=== PATIENT | female | born 1950 | race Caucasian/White ===

== ENCOUNTER → 2018-05-17 | Outpatient (CLI) | payer MEDICARE, OTHER ==
[2018-05-17 14:34] VITALS: BP 129/63; PULSE 77; TEMP 97.9; BMI 30.7
--- NOTE | 2018-05-17 15:49 | P.HPOB ---
History of Present Illness H&P Date: 05/17/18 Chief Complaint: The patient is here for routine gynecologic exam. This is a 68-year-old with an LMP of approximately 1989. The patient is here to establish with this office. She states it has been more than 10 years since her last pelvic exam. She is without gynecologic complaints and denies any postmenopausal bleeding. Review of Systems Her weight has been stable over the last year. She denies respiratory, cardiac and G.I. problems. She denies maltreatment or problems with falling. : she denies any significant problems with urinary leakage. Past Medical History Past Medical History: Diabetes Mellitus (Type I diabetes), Hypertension, Myocardial Infarction (MO) (1997) Additional Past Medical History / Comment(s): PAST FELLER HAND HISTORY: She has no history of STDs. Last Myocardial Infarction Date:: 1997 History of Any Multi-Drug Resistant Organisms: None Reported Past Surgical History: Cholecystectomy, Coronary Bypass/CABG (1997 triple bypass ), Orthopedic Surgery (Knee surgeries), Tonsillectomy, Tubal Ligation Additional Past Surgical History / Comment(s): Coronary artery stents. Colonoscopy 2017(3rd). Past Psychological History: No Psychological Hx Reported Smoking Status: Never smoker Past Alcohol Use History: Rare Past Drug Use History: None Reported Additional History: She has been a since approximately 2007. She is not seen anybody at this time. 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 - Past Family History Father Additional Family Medical History / Comment(s): Multiple sclerosis. Mother Family Medical History: Diabetes Mellitus Additional Family Medical History / Comment(s): Maternal grandmother had uterine cancer. Medications and Allergies Home Medications and Allergies Comment(s): The patient states she is on multiple medications but does not know what medications she is on and does not have a list of her medications at this time. She states she will send the list of medications to us. Allergies Allergy/AdvReac Type Severity Reaction Status Date / Time codeine AdvReac Severe Nausea Unverified 05/17/18 14:31 Exam Vital Signs Temp Pulse BP 05/17/18 14:31 97.9 F 77 129/63 Intake and Output 05/17/18 05/17/18 05/17/18 06:59 14:59 22:59 Other: Weight 76.204 kg Height 5'2", weight 168 pounds, BMI 30.7. This is a well-developed well-nourished white female who is alert and oriented times 3 in no acute distress. HEENT: Within normal limits. NECK: Supple without mass or thyromegaly. CHEST AND LUNGS: Clear to auscultation. HEART: Regular rate and rhythm. BREASTS: Are without mass or discharge. AXILLARY EXAM: Negative for adenopathy. BACK: Negative for CVA tenderness. ABDOMEN: Soft, nontender, without palpable masses. PELVIC EXAM: Normal external genitalia with mild to moderate atrophy. Cervix and vagina appear normal with mild to moderate atrophy. There is no unusual discharge. There is no evidence of prolapse. The uterus is midposition, nongravid size and nontender. There are no palpable adnexal masses or tenderness. RECTAL EXAM: rectovaginal exam is negative for mass or tenderness and is negative for occult blood. EXTREMITIES: Nontender. IMPRESSION: 1. 68 year old menopausal female with normal gynecologic exam. 2. Multiple medical problems. PLAN: 1. Pap smear was performed. 2. Self breast awareness was discussed with the patient. 3. I have recommended screening mammogram and the order slip was given to the patient for this. 4. Osteoporosis prevention was discussed. Bone density screening was also recommended and the order slip was given to the patient for this. 5. She is declining any flu vaccinations. 6. She will return in one year.
== END | disposition home or self-care (01) ==
LOC: WWCWWP 14:04
PROVIDERS: ATTEND Obstetrics & Gynecology
DX: Z53.9 Procedure and treatment not carried out, unspecified reason (principal)

== ENCOUNTER → 2018-06-24 | Outpatient (CLI) | payer MEDICARE, OTHER ==
--- NOTE | 2018-06-24 11:37 | BD ---
EXAMINATION TYPE: Axial Bone Density DATE OF EXAM: 06/24/2018 COMPARISON: NONE CLINICAL HISTORY: Postmenopausal female. Osteoporosis screening. Height: 62.5 IN Weight: 164 LBS FRAX RISK QUESTIONS: Secondary Osteoporosis: 1. Type 1 Diabetes: YES RISK FACTORS HISTORY OF: Active: YES Diet low in dairy products/other sources of calcium: YES Postmenopausal woman: AGE 45 Lost more than 2 inches in height since high school: YES 07/20" MEDICATIONS: Additional Medications: VIT D, LOSARTAN, ISOSORB MONO ER, CARVEDILOL, ATORVASTATIN, NOVOLIN EXAM MEASUREMENTS: Bone mineral densitometry was performed using the [employer] System. Bone mineral density as measured about the Lumbar spine is: ----- L1-L4(G/cm2): 1.503 T Score Values are as follows: ----- L2: 2.3 ----- L3: 2.4 ----- L4: 3.4 ----- L1-L4: 2.7 Bone mineral density BASELINE Bone mineral density about the R hip (g/cm2): 0.986 Bone mineral density about the L hip (g/cm2): 0.866 T Score values are as follows: -----R Neck: -0.4 -----L Neck: -1.2 -----R Total: -0.2 -----L Total: -0.4 Bone mineral density BASELINE IMPRESSION: Osteopenia (T Score between -2.5 and -1). There is slightly increased risk of fracture and the patient may be considered for treatment. Re-Screen 2-5 years. NOTE: T-SCORE=SD OF THE YOUNG ADULT MEAN.
--- NOTE | 2018-06-28 07:37 | MM ---
Reason for exam: screening (asymptomatic). Last mammogram was performed 1 year ago. History: Patient is postmenopausal. Physical Findings: A clinical breast exam by your physician is recommended on an annual basis and results should be correlated with mammographic findings. MG 3D Screening Mammo W/Cad Bilateral CC and MLO view(s) were taken. Prior study comparison: June 18, 2017, mammogram, performed at [facility]. April 29, 2016, mammogram, performed at [facility]. There are scattered fibroglandular densities. No significant changes when compared with prior studies. ASSESSMENT: Benign, BI-RAD 2 RECOMMENDATION: Routine screening mammogram of both breasts in 1 year.
--- NOTE | 2018-06-29 10:07 | P.PN ---
Progress Note - Text Progress Note Date: 06/29/18 OUTPATIENT FOLLOW-UP NOTE TEST(S)/RESULTS: bone density test done on 06/24/2018 shows focal osteopenia in the left femur neck with a T score of -1.2. METHOD OF NOTIFICATION: the patient was notified by phone. PATIENT COMMENTS: she states she had previous normal bone density tests done in [place]. DIAGNOSIS: focal osteopenia DISCUSSION: we have discussed the importance of getting adequate calcium, vitamin D and regular exercise. She was already given a handout on this. PLAN: repeat bone density testing in 3 years. She will return in one year for her annual well woman exam.
== END | disposition home or self-care (01) ==
LOC: RADBDWWP 10:19
PROVIDERS: ATTEND Obstetrics & Gynecology
DX: Z12.31 Encounter for screening mammogram for malignant neoplasm of breast (principal); M85.80 Other specified disorders of bone density and structure, unspecified site; Z78.0 Asymptomatic menopausal state
CPT/HCPCS: 77063; 77067; 77080

== ENCOUNTER → 2019-07-25 | Outpatient (CLI) | payer MEDICARE, OTHER ==
[2019-07-25 13:04] VITALS: BP 148/72; PULSE 61; RESP 16; TEMP 97.7
--- NOTE | 2019-07-25 13:59 | P.HPOB ---
History of Present Illness H&P Date: 07/25/19 Chief Complaint: The patient is here for her routine gynecologic exam and ma mmogram. This is a 69-year-old with an LMP of 1989. The patient states she has had a slight vaginal odor for greater than 1 year. She was treated for BV after her Pap smear showed a shift in the vaginal justine. Pap smear was negative on 05/17/2018. She was treated for BV twice and states she never noticed much improvement with the vaginal odor. She states it is fairly constant and there is a slight thin discharge noted with it. She denies any postmenopausal bleeding. She states she has not been sexually active for many years. She denies any pruritus. Review of Systems She has lost about 8 pounds over the last year. She denies respiratory, cardiac and G.I. problems. She denies maltreatment or problems with falling. : she has occasional slight leakage with laughing or coughing. Past Medical History Past Medical History: Diabetes Mellitus, Hypertension, Myocardial Infarction (MO) Additional Past Medical History / Comment(s): Type 1 diabetes. 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 Last Myocardial Infarction Date:: 1997 History of Any Multi-Drug Resistant Organisms: None Reported Past Surgical History: Cholecystectomy, Coronary Bypass/CABG, Orthopedic Surgery, Tonsillectomy, Tubal Ligation Additional Past Surgical History / Comment(s): Coronary artery stents. Colonoscopy 2017(3rd). Past Psychological History: No Psychological Hx Reported Smoking Status: Never smoker Past Alcohol Use History: Occasional (1 per month) Past Drug Use History: None Reported Additional History: She is a since approximately 2007. She is not seeing anybody at this time and is not sexually active. 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 - Past Family History Father Additional Family Medical History / Comment(s): Multiple sclerosis. Mother Family Medical History: Diabetes Mellitus Additional Family Medical History / Comment(s): Maternal grandmother had uterine cancer. Medications and Allergies Home Medications Medication Instructions Recorded Confirmed Type Atorvastatin [Lipitor] 80 mg PO DAILY 05/24/18 07/25/19 History Carvedilol [Coreg] 3.125 mg PO BID 05/24/18 07/25/19 History Clopidogrel [Plavix] 75 mg PO DAILY 05/24/18 07/25/19 History Insulin NPH Human Isophane 12 - 13 unit INJ HS 05/24/18 07/25/19 History [NovoLIN N] Insulin NPH Human Isophane 22 units INJ DAILY 05/24/18 07/25/19 History [NovoLIN N] Insulin Regular, Human [NovoLIN R] 100 100ml.bag INJ DIRECTED 05/24/18 07/25/19 History Isosorbide Mononitrate [Imdur] 120 mg PO DAILY 05/24/18 07/25/19 History Allergies Allergy/AdvReac Type Severity Reaction Status Date / Time codeine AdvReac Severe Nausea Unverified 07/25/19 13:05 NSAIDS (Non-Steroidal AdvReac Rash/Hives Unverified 07/25/19 13:05 Anti-Inflamma Exam Vital Signs Temp Pulse Resp BP Pulse Ox 07/25/19 12:59 97.7 F 61 16 148/72 95 Intake and Output 07/24/19 07/25/19 07/25/19 22:59 06:59 14:59 Other: Weight 72.575 kg Height 5 feet 2 inches, weight 160 pounds, BMI 29.3. This is a well-developed well-nourished white female who is alert and oriented times 3 in no acute distress. HEENT: Within normal limits. NECK: Supple without mass or thyromegaly. CHEST AND LUNGS: Clear to auscultation. HEART: Regular rate and rhythm. BREASTS: Are without mass or discharge. AXILLARY EXAM: Negative for adenopathy. BACK: Negative for CVA tenderness. ABDOMEN: Soft, nontender, without palpable masses. PELVIC EXAM: Normal external genitalia with mild atrophy. Cervix and vagina appear normal with mild atrophy. There is a minimal amount of clear thin liquid in the vagina with minimal odor. There is no evidence of prolapse. The uterus is midposition, nongravid size and nontender. There are no palpable adnexal masses or tenderness. RECTAL EXAM: Rectovaginal exam is negative for mass or tenderness and is negative for occult blood. EXTREMITIES: Nontender. IMPRESSION: 1. 69-year-old menopausal female with chronic vaginal odor and slight discharge. There are minimal physical findings on examination today. Differential diagnosis will include bacterial vaginosis, physiologic discharge, slight discharge related to genital atrophy, or atypical symptoms for other vaginitis. 2. Multiple medical problems. 3. History of osteopenia PLAN: 1. Pap smear was deferred since she had a negative one on 05/17/2018. 2. Self breast awareness was discussed with the patient. 3. Screening mammogram will be done today. 4. Affirm nucleic acid testing for BV, Trichomonas and Zoila was sent from the slight vaginal discharge. 5. If the affirm testing is unremarkable, consider other options such as trial of estradiol vaginal cream, Rephresh gel, or acidophilus supplements. 6.Osteoporosis prevention was discussed. I have stressed the importance of adequate calcium, vitamin D and regular exercise. Recommended amounts of calcium and vitamin D were also discussed. I have recommended bone density testing in 1 year since her last one was on 06/24/2018 and showed osteopenia. 7. She states she does not get flu shots in the fall. I have asked her to reconsider this to reduce the risk of getting the flu. 8. The patient was advised to return in 1-2 years for her well woman examination.
[2019-07-26 03:59] LABS: Gardnerella Positive (Negative); Source Vagina; Trichomonas Negative (Negative)
--- NOTE | 2019-07-26 09:29 | P.PN ---
Progress Note - Text Progress Note Date: 07/26/19 OUTPATIENT FOLLOW-UP NOTE TEST(S)/RESULTS: Test results from 07/25/2019 showed a vaginal nucleic acid testing positive for Gardnerella and negative for Trichomonas and Zoila. METHOD OF NOTIFICATION: The patient was notified by phone PATIENT COMMENTS: She would like to try the vaginal gel antibiotic. DIAGNOSIS: Bacterial vaginosis DISCUSSION: She had previously used oral metronidazole without much improvement last year. We have discussed how it will also be important to try to increase the good bacterial vaginal justine, if possible. I have recommended that she increase oral yogurt intake or consider getting a probiotic. PLAN: MetroGel vaginal, 1 applicator intravaginally daily at bedtime 5 days. The electronic prescription will be sent to [facility] pharmacy in [place]. She was advised to return in one year for her annual well woman exam and as needed.
--- NOTE | 2019-07-27 10:41 | MM ---
Reason for exam: screening (asymptomatic). Last mammogram was performed 1 year and 1 month ago. History: Patient is postmenopausal. Physical Findings: A clinical breast exam by your physician is recommended on an annual basis and results should be correlated with mammographic findings. MG 3D Screening Mammo W/Cad Bilateral CC and MLO view(s) were taken. Prior study comparison: June 24, 2018, bilateral MG 3d screening mammo w/cad. June 18, 2017, mammogram, performed at [facility]. There are scattered fibroglandular densities. No significant changes when compared with prior studies. ASSESSMENT: Benign, BI-RAD 2 RECOMMENDATION: Routine screening mammogram of both breasts in 1 year.
== END | disposition home or self-care (01) ==
LOC: WWCWWP 12:17
PROVIDERS: ATTEND Obstetrics & Gynecology
DX: Z12.31 Encounter for screening mammogram for malignant neoplasm of breast (principal); N89.8 Other specified noninflammatory disorders of vagina
CPT/HCPCS: 77063; 77067; 87480; 87510; 87660

== ENCOUNTER → 2020-10-08 | Outpatient (CLI) | payer MEDICARE, OTHER ==
[2020-10-08 15:02] VITALS: BP 149/78; PULSE 69; RESP 18; TEMP 98.2
--- NOTE | 2020-10-08 16:26 | P.HPOB ---
History of Present Illness H&P Date: 10/08/20 Chief Complaint: The patient is here for her routine gynecologic exam and ma mmogram. This is a 70-year-old G for P4 with an LMP of 1989. The patient believes she had a COVID-19 in July 2019. Her symptoms included respiratory problems and loss of taste. She continues to have some respiratory issues and has not regained full taste sensations. She has asthma like symptoms including some coughing since July 2019. With the increased coughing she has had a significant increase in stress urinary incontinence with immediate leakage after coughing. She denies any significant urge incontinence. She is otherwise without complaints and denies any postmenopausal bleeding. Review of Systems She has gained about 8 pounds over the past year. Respiratory: Some residual respiratory effects following suspected COVID. She denies cardiac or GI problems. She denies maltreatment or falling. : Occasional urinary leakage with coughing. See the HPI. Past Medical History Past Medical History: Diabetes Mellitus, Hypertension, Myocardial Infarction ([place]) Additional Past Medical History / Comment(s): Type 1 diabetes. 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 Last Myocardial Infarction Date:: 1997 History of Any Multi-Drug Resistant Organisms: None Reported Past Surgical History: Cholecystectomy, Coronary Bypass/CABG, Orthopedic Surgery, Tonsillectomy, Tubal Ligation Additional Past Surgical History / Comment(s): Coronary artery stents. Colonoscopy 2017(3rd). Past Psychological History: No Psychological Hx Reported Smoking Status: Former smoker Past Alcohol Use History: Occasional (2 per month) Additional Past Alcohol Use History / Comment(s): She states she quit smoking in the 1970s. Past Drug Use History: None Reported Additional History: She has been a since approximately 2005. She is not seeing anybody at this time and has not been sexually active. 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 - Past Family History Father Additional Family Medical History / Comment(s): Multiple sclerosis. Mother Family Medical History: Diabetes Mellitus Additional Family Medical History / Comment(s): Maternal grandmother had uterine cancer. Medications and Allergies Home Medications Medication Instructions Recorded Confirmed Type Atorvastatin [Lipitor] 80 mg PO DAILY 05/24/18 10/08/20 History Clopidogrel [Plavix] 75 mg PO DAILY 05/24/18 10/08/20 History Insulin NPH Human Isophane 12 - 13 unit INJ HS 05/24/18 10/08/20 History [NovoLIN N] Insulin NPH Human Isophane 22 units INJ DAILY 05/24/18 10/08/20 History [NovoLIN N] Insulin Regular, Human [NovoLIN R] 100 100ml.bag INJ DIRECTED 05/24/18 10/08/20 History Isosorbide Mononitrate [Imdur] 120 mg PO DAILY 05/24/18 10/08/20 History carvediloL [Coreg] 3.125 mg PO BID 05/24/18 10/08/20 History Allergies Allergy/AdvReac Type Severity Reaction Status Date / Time codeine AdvReac Severe Nausea Unverified 10/08/20 14:55 NSAIDS (Non-Steroidal AdvReac Rash/Hives Unverified 10/08/20 14:55 Anti-Inflamma Exam Vital Signs Temp Pulse Resp BP Pulse Ox 10/08/20 14:57 98.2 F 69 18 149/78 95 Intake and Output 10/08/20 10/08/20 10/08/20 06:59 14:59 22:59 Other: Weight 76.204 kg Height 5 feet 3 inches, weight 168 pounds, BMI 29.8. This is a well-developed well-nourished white female who is alert and oriented times 3 in no acute distress. HEENT: Within normal limits. NECK: Supple without mass or thyromegaly. CHEST AND LUNGS: There is mild prolongation of the expiration phase without wheezes. The lungs are otherwise clear to auscultation. HEART: Regular rate and rhythm. BREASTS: Are without mass or discharge. AXILLARY EXAM: Negative for adenopathy. BACK: Negative for CVA tenderness. ABDOMEN: Soft, nontender, without palpable masses. PELVIC EXAM: Normal external genitalia with mild atrophy. Cervix and vagina appear normal mild atrophy. There is no unusual discharge. There is no evidence of prolapse at rest. With cough and Valsalva, there is mild urethral mobility without demonstrated urinary leakage. The uterus is midposition, nongravid size and nontender. There are no palpable adnexal masses or tenderness. RECTAL EXAM: Rectovaginal exam is negative for mass or tenderness and is negative for occult blood. Good sphincter tone is noted with strong ability to contract the muscle on-demand. EXTREMITIES: Nontender. IMPRESSION: 1. 70-year-old menopausal female with mild stress urinary incontinence with mild urethral mobility with cough and Valsalva. 2. History of osteopenia. PLAN: 1. Pap smear was performed. We have a normal one in 2018 and she went for more than 10 years prior to this without cervical screening. If today's Pap smear is normal we will still repeat this again in about 3 years and if that one is also negative, we will consider discontinuing Pap smears. 2. Self breast awareness was discussed with the patient. 3. Screening mammogram will be done today. 4. Osteoporosis prevention was discussed. I have stressed the importance of adequate calcium, vitamin D and regular exercise. Recommended amounts of calcium and vitamin D were also discussed. I recommended repeating bone density testing later this year, she would like to read do this next year. 5. I have recommended regular kegal exercises and timed voids. I given her instructions on these things. We have also discussed possible referral to a gynecologic urologist for further evaluation of her stress urinary incontinence. We will see how she does with the ketal exercises and timed voids. She will call if things are not improving enough or if she is having worsening of symptoms so we can then make a referral for her. 6. She states she does not get flu shots in the fall and does not plan to get the covert vaccination since she believes she already had COVID. 7. She was advised to return in one year for her annual well woman exam.
--- NOTE | 2020-10-09 13:45 | MM ---
Reason for exam: screening (asymptomatic). Last mammogram was performed 1 year and 3 months ago. History: Patient is postmenopausal. Physical Findings: A clinical breast exam by your physician is recommended on an annual basis and results should be correlated with mammographic findings. MG 3D Screening Mammo W/Cad Bilateral CC and MLO view(s) were taken. Prior study comparison: July 25, 2019, bilateral MG 3d screening mammo w/cad. June 24, 2018, bilateral MG 3d screening mammo w/cad. There are scattered fibroglandular densities. No significant changes when compared with prior studies. ASSESSMENT: Benign, BI-RAD 2 RECOMMENDATION: Routine screening mammogram of both breasts in 1 year.
== END ==
LOC: WWCWWP 14:45
PROVIDERS: ATTEND Obstetrics & Gynecology
DX: Z12.31 Encounter for screening mammogram for malignant neoplasm of breast (principal); N39.3 Stress incontinence (female) (male); N36.8 Other specified disorders of urethra; I10 Essential (primary) hypertension; E10.9 Type 1 diabetes mellitus without complications; I25.2 Old myocardial infarction; Z79.4 Long term (current) use of insulin; Z79.02 Long term (current) use of antithrombotics/antiplatelets; Z87.39 Personal history of other diseases of the musculoskeletal system and connective tissue; Z87.891 Personal history of nicotine dependence
CPT/HCPCS: 77063; 77067

== ENCOUNTER → 2021-12-30 | Outpatient (CLI) | payer MEDICARE, OTHER ==
[2021-12-30 16:05] VITALS: BP 159/68; PULSE 72; RESP 17; TEMP 98.2
--- NOTE | 2021-12-30 16:56 | P.HPOB ---
History of Present Illness H&P Date: 12/30/21 Chief Complaint: The patient is here for her routine gynecologic exam and ma mmogram. This is a 71-year-old with an LMP of 1989. The patient continues to have some issues with urinary leakage and does require a pad most of the time. She notices urinary leakage on occasion with coughing and sneezing. She denies any significant urge incontinence symptoms. She is otherwise without gynecologic complaints. Review of Systems The patient has gained 8 pounds over the last year. She denies respiratory, cardiac, or G.I. problems. : See HPI. Past Medical History Past Medical History: Diabetes Mellitus, Hypertension, Myocardial Infarction (CA) Additional Past Medical History / Comment(s): Type 1 diabetes. PAST AUTOMOTIVE SALES MANAGER HISTORY: She has no history of STDs. Last Myocardial Infarction Date:: 1997 History of Any Multi-Drug Resistant Organisms: None Reported Past Surgical History: Cholecystectomy, Coronary Bypass/CABG, Orthopedic Surgery, Tonsillectomy, Tubal Ligation Additional Past Surgical History / Comment(s): Coronary artery stents. Colonoscopy 2017(3rd). Past Psychological History: No Psychological Hx Reported Smoking Status: Former smoker Past Alcohol Use History: Occasional (2 per month) Additional Past Alcohol Use History / Comment(s): She states she quit smoking in the 1970s. Past Drug Use History: None Reported Additional History: She has been a since approximately 2005. She is not seeing anybody at this time and has not been sexually active. 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 - Past Family History Father Additional Family Medical History / Comment(s): Multiple sclerosis. Mother Family Medical History: Diabetes Mellitus Additional Family Medical History / Comment(s): Maternal grandmother had uterine cancer. Medications and Allergies Home Medications Medication Instructions Recorded Confirmed Type Clopidogrel [Plavix] 75 mg PO DAILY 05/24/18 12/30/21 History Insulin NPH Human Isophane 12 - 13 unit INJ HS 05/24/18 12/30/21 History [NovoLIN N] Insulin NPH Human Isophane 22 units INJ DAILY 05/24/18 12/30/21 History [NovoLIN N] Insulin Regular, Human [NovoLIN R] 100 100ml.bag INJ DIRECTED 05/24/18 12/30/21 History Isosorbide Mononitrate [Imdur] 120 mg PO DAILY 05/24/18 12/30/21 History carvediloL [Coreg] 6.25 mg PO BID 05/24/18 12/30/21 History Furosemide [Lasix] 40 mg PO DAILY 12/30/21 12/30/21 History Losartan Potassium [Cozaar] 100 mg PO DAILY 12/30/21 12/30/21 History Rosuvastatin Calcium [Crestor] 40 mg PO DAILY 12/30/21 12/30/21 History Allergies Allergy/AdvReac Type Severity Reaction Status Date / Time codeine AdvReac Severe Nausea Unverified 12/30/21 15:54 NSAIDS (Non-Steroidal AdvReac Rash/Hives Unverified 12/30/21 15:54 Anti-Inflamma Exam Vital Signs Temp Pulse Resp BP Pulse Ox 12/30/21 16:01 98.2 F 72 17 159/68 97 Intake and Output 12/30/21 12/30/21 12/30/21 06:59 14:59 22:59 Other: Weight 79.832 kg Height 5 feet 2 inches, weight 176 pounds, BMI 32.2. This is a well-developed well-nourished white female who is alert and oriented times 3 in no acute distress. HEENT: Within normal limits. NECK: Supple without mass or thyromegaly. CHEST AND LUNGS: Clear to auscultation. HEART: Regular rate and rhythm. BREASTS: Are without mass or discharge. AXILLARY EXAM: Negative for adenopathy. BACK: Negative for CVA tenderness. ABDOMEN: Soft, nontender, without palpable masses. PELVIC EXAM: Normal external genitalia with mild atrophy. Cervix and vagina appear normal with mild atrophy. There is no unusual discharge. There is no evidence of prolapse at rest. With cough and Valsalva there is mild urethral mobility. No urinary leakage was demonstrated. The uterus is midposition, nongravid size and nontender. There are no palpable adnexal masses or te nderness. RECTAL EXAM: Rectovaginal exam is negative for mass or tenderness and is negative for occult blood. There is good sphincter tone. EXTREMITIES: Nontender. IMPRESSION: 1. 71-year-old menopausal female with normal gynecologic exam. 2. Mild stress urinary incontinence with mild urethral mobility. 3. History of osteopenia. PLAN: 1. Pap smear was deferred since she had a normal one on 10/08/2020. We will plan on repeating this in approximately 1-2 years. If that one is negative, we will have 3 negative Pap smears within a 10 year period and we will plan on discontinuing it after that. 2. Self breast awareness was discussed with the patient. We have also discussed symptoms associated with inflammatory breast cancer. 3. Screening mammogram will be done today. 4. Osteoporosis prevention was discussed. I have stressed the importance of adequate calcium, vitamin D and regular exercise. Recommended amounts of calcium and vitamin D were also discussed. Her last bone density test was on 06/24/2018. I have recommended repeating the bone density test and the order slip was given to the patient for this. 5. We have had a long discussion regarding stress urinary incontinence. I have recommended that she do kegal exercises regularly with sets of 20, three times a day. I have also stressed the importance of trying to empty the bladder as completely as possible by giving herself more time and by relaxing. There also discussed timed voids. I have offered her a referral to a gynecologic urologist. She will consider this but does not feel that this is necessary at this time. She states she will call if there is worsening of her symptoms. 6. It has been about 5 years since her last colonoscopy. She will follow up with her PCP to determine when her next one is due. 7. She was advised to return in one year for her annual well woman exam.
== END ==
LOC: WWCWWP 15:47
PROVIDERS: ATTEND Obstetrics & Gynecology
DX: Z12.31 Encounter for screening mammogram for malignant neoplasm of breast (principal); Z01.419 Encounter for gynecological examination (general) (routine) without abnormal findings; Z78.0 Asymptomatic menopausal state; N39.3 Stress incontinence (female) (male); Z87.39 Personal history of other diseases of the musculoskeletal system and connective tissue; Z87.891 Personal history of nicotine dependence; Z88.5 Allergy status to narcotic agent; Z88.6 Allergy status to analgesic agent; I25.2 Old myocardial infarction; I10 Essential (primary) hypertension; E10.9 Type 1 diabetes mellitus without complications; Z79.4 Long term (current) use of insulin; Z79.899 Other long term (current) drug therapy
CPT/HCPCS: 77063; 77067

== ENCOUNTER → 2022-02-11 | Outpatient (CLI) | payer MEDICARE, OTHER ==
--- NOTE | 2022-02-12 16:58 | BD ---
EXAMINATION TYPE: Axial Bone Density DATE OF EXAM: 02/11/2022 COMPARISON: PREVIOUS UNAVAILABLE 06-24-2018 CLINICAL HISTORY: 71 years year old Female. ICD-10 CODE: Z78.0 POSTMENOPAUSAL Height: 62.5 Weight: 176 FRAX RISK QUESTIONS: Secondary Osteoporosis: 1. Type 1 Diabetes: YES RISK FACTORS HISTORY OF: Active: YES Postmenopausal woman: YES MENOPAUSE AT 45 Lost more than 2 inches in height since high school: YES MEDICATIONS: Additional Medications: CARVEDILOL, COZAAR, CRESTOR, IMDUR, LASIX, PLAVIX, INHALER, CALCIUM Additional History: EXAM MEASUREMENTS: Bone mineral densitometry was performed using the [employer] System. Bone mineral density as measured about the Lumbar spine is: ----- L1-L4(G/cm2): 1.495 T Score Values are as follows: ----- L1: 2.5 ----- L2: 1.8 ----- L3: 3.3 ----- L4: 2.8 ----- L1-L4: 2.6 PREVIOUS 06-24-2018 UNAVAILABLE Bone mineral density about the R hip (g/cm2): 0.943 Bone mineral density about the L hip (g/cm2): 0.902 T Score values are as follows: -----R Neck: -0.9 -----L Neck: -1.1 -----R Total: -0.5 -----L Total: -0.8 PREVIOUS 06-24-2018 UNAVAILABLE FRAX%s: The graph provided illustrates a 9.5% chance for a major osteoporotic fx and a 1.4% chance fo r the hips probability for fx in 10 years time. IMPRESSION: Osteopenia (T Score between -2.5 and -1). There is slightly increased risk of fracture and the patient may be considered for treatment. Re-Screen 2-5 years. NOTE: T-SCORE=SD OF THE YOUNG ADULT MEAN.
== END | disposition home or self-care (01) ==
LOC: RADBDWWP 14:40
PROVIDERS: ATTEND Obstetrics & Gynecology
DX: M85.89 Other specified disorders of bone density and structure, multiple sites (principal); Z78.0 Asymptomatic menopausal state
CPT/HCPCS: 77080

== ENCOUNTER → 2023-03-12 | Outpatient (CLI) | payer MEDICARE, OTHER ==
--- NOTE | 2023-03-15 11:39 | MM ---
Reason for Exam: Screening (asymptomatic). Last mammogram was performed 1 year(s) and 2 month(s) ago. Patient History: Menarche at age 11. First Full-Term at age 17. Postmenopausal. Patient has history of breast feeding. Risk Values: Yumiko 5 year model risk: 1.3%. NCI Lifetime model risk: 2.8%. Prior Study Comparison: 07/25/2019 Bilateral Screening Mammogram, [facility]. 10/08/2020 Bilateral Screening Mammogram, [facility]. 12/30/2021 Bilateral MG 3D screening mammo w/cad, [facility]. Tissue Density: The breast tissue is heterogeneously dense. This may lower the sensitivity of mammography. Findings: Analyzed By CAD. There is no suspicious group of microcalcifications or new suspicious mass in either breast. Overall Assessment: Benign, BI-RAD 2 Management: Screening Mammogram of both breasts in 1 year. . Patient should continue monthly self-breast exams. A clinical breast exam by your physician is recommended on an annual basis. This exam should not preclude additional follow-up of suspicious palpable abnormalities. Note on Yumiko scores and lifetime risk: 1. A Yumiko score greater than 3% is considered moderate risk. If this is the case, consider specialist referral to assess eligibility for a risk reducing agent. 2. If overall lifetime risk for the development of breast cancer is 20% or higher, the patient may qualify for future screening with alternating mammogram and breast MRI. Electronically signed and approved by: John Elias M.D. Radiologis
== END | disposition home or self-care (01) ==
LOC: RADMAMWWP 14:52
PROVIDERS: ATTEND Internal Medicine
DX: Z12.31 Encounter for screening mammogram for malignant neoplasm of breast (principal); Z29.9 Encounter for prophylactic measures, unspecified; Z78.0 Asymptomatic menopausal state
CPT/HCPCS: 77063; 77067